=== PATIENT | female | born 1965 | race Caucasian/White ===

== ENCOUNTER → 2017-02-24 | Outpatient (CLI) | payer OTHER ==
[~2017-02-24] MED LIST: CENTRUM SILVER1 EAC4 PO; LOPRESSOR25 PO; METFORMIN HCL500 MG PO; VITAMIN A8000 UNI1 PO; VITAMIN D1000 UNI1 PO
== END ==
LOC: MRI 11:25
DX: G43.909 Migraine, unspecified, not intractable, without status migrainosus (principal); H53.9 Unspecified visual disturbance; M54.2 Cervicalgia

== ENCOUNTER → 2020-01-28 | Outpatient (CLI) | payer OTHER | LOC: MRI 10:43 | PROVIDERS: ATTEND Neuromusculoskeletal Medicine & OMM | DX: R51.9 Headache, unspecified (principal); H93.19 Tinnitus, unspecified ear ==